=== PATIENT | female | born 1960 | race Caucasian/White ===

== ENCOUNTER → 2016-12-18 | Outpatient (CLI) | payer BC ==
--- NOTE | 2016-12-18 11:33 | REPMRS ---
Patient History The patient states she had a clinical breast exam in November 2016. Family history of breast cancer in mother at age 60. Digital Mammo Screening Bilat: December 18, 2016 - Exam #: [id number] Bilateral CC and MLO view(s) were taken. Technologist: Shelley Gomes, Technologist Prior study comparison: November 18, 2015, bilateral digital mammo screening bilat performed at [facility], [place]. November 16, 2014, bilateral digital mammo screening bilat performed at [facility], [place]. FINDINGS: There are scattered fibroglandular densities. There has been no change in the appearance of the mammogram from the prior studies. There is a mild amount of residual fibroglandular tissue which is fairly symmetric. There is no interval development of dominant mass, architectural distortion, or clustered microcalcification suggestive of malignancy. ASSESSMENT: BI-RADS/ACR category 1 mammogram. Negative. Recommendation Routine screening mammogram in 1 year (for women over age 40). This mammogram was interpreted with the aid of an FDA-approved computer-aided dectection system. Electronically Signed By: Arvind Bell MD 12/18/16 [id number]
== END ==
LOC: M RAD 10:20
PROVIDERS: ATTEND Family Medicine
DX: Z12.31 Encounter for screening mammogram for malignant neoplasm of breast (principal); Z80.3 Family history of malignant neoplasm of breast

== ENCOUNTER 2018-10-14 07:58 | Outpatient (RCR) | payer BC ==
[~2018-10-14 07:58] MED LIST: CITRTAB13 PO; FERR324T12 PO; LOSA50TA5 PO; MULTCAP PO; VITA500C24 PO; VITA500T3 PO
[2018-10-14] MEDS ORDERED: ANAS1TAB2 PO (14:23)
== END 2018-11-03 ==
LOC: M PT 07:58
PROVIDERS: ATTEND Registered Nurse
DX: Z90.13 Acquired absence of bilateral breasts and nipples (principal); C50.119 Malignant neoplasm of central portion of unspecified female breast

== ENCOUNTER → 2018-10-20 | Outpatient (CLI) | payer BC ==
[~2018-10-20] MED LIST changes: +ANAS1TAB2 PO
--- NOTE | 2018-10-24 10:15 | DEXA ---
AP SPINE L1 - L4 1.156 -0.3 0.8 LT FEMUR TOTAL 1.028 0.2 1.1 LT NECK 0.979 -0.4 0.8 RT FEMUR TOTAL 1.010 0.0 0.9 RT NECK 1.024 -0.1 1.1 TOTAL BODY TOTAL OTHER COMMENTS: Normal bone densitometry of the spine and hips. FOLLOW-UP: Recommendation for the next bone density exam: 5 years. DARYL
== END ==
LOC: M WHC 11:12
PROVIDERS: ATTEND Internal Medicine Hematology & Oncology
DX: Z79.811 Long term (current) use of aromatase inhibitors (principal); D05.12 Intraductal carcinoma in situ of left breast; Z13.820 Encounter for screening for osteoporosis; Z80.3 Family history of malignant neoplasm of breast; Z90.13 Acquired absence of bilateral breasts and nipples; Z98.84 Bariatric surgery status

== ENCOUNTER → 2018-10-21 | Outpatient (REF) | payer BC | LOC: M LAB REF 19:18 | PROVIDERS: ATTEND Physician Assistant Medical | DX: J02.9 Acute pharyngitis, unspecified (principal) ==

== ENCOUNTER → 2018-11-03 | Outpatient (CLI) | payer BC ==
--- NOTE | 2018-11-07 11:06 | RADONC ---
RADIATION ONCOLOGY CONSULTATION NOTE DATE OF CONSULTATION: 11/03/2018 CHART NUMBER: [id number]. DIAGNOSIS: Left breast cancer. STAGE: IA, [id number], grade 1, ER positive, DE positive, HER2 negative. ECOG PERFORMANCE STATUS: Zero. CONSULTATION NOTE: Ms. Arriaza is a delightful 58-year-old white female with the diagnosis of what appears to be a stage IA, [id number], well-differentiated infiltrating ductal carcinoma of the left breast which is ER positive, DE positive, and HER2 negative, who is presenting to wa status post bilateral mastectomies for discussion of postoperative radiation therapy to her left chest wall for a positive margin. HISTORY OF PRESENT ILLNESS: The patient was in the usual state of health until 2016 when she began having some left nipple discharge. A biopsy was done and showed a papilloma. She has since been followed with MRIs, and apparently one done on 07/21/2018 showed some linear enhancement in the medial left breast. 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 The patient had a strong family history of breast cancer and requested a right simple prophylactic mastectomy, as well as a left mastectomy. On 09/27/2018, the patient underwent the above procedures, as well as sentinel lymph node biopsy on the left, as well as the right. The prophylactic right breast biopsy revealed atypical ductal hyperplasia, as well as lobular carcinoma in situ. Three lymph nodes were sampled and were negative for malignancy. The left mastectomy revealed a well-differentiated invasive ductal carcinoma measuring 3 mm and associated with ductal carcinoma in situ in the previous biopsy site. Two additional foci of microinvasive carcinoma were seen. The ductal carcinoma in situ was low to intermediate nuclear grade measuring 2.2 cm. No lymph vascular invasion was seen. One axillary lymph node was sampled and was negative for malignancy. Six further lymph nodes were then sampled, and all were negative for malignancy. Of note, the superficial margin of resection was focally positive for ductal carcinoma in situ. The tumor was well-differentiated. All other margins of resection were negative. The tumor was estrogen receptor positive, progesterone receptor positive, and HER2 negative. The patient is now presenting to [place] to discuss possible chest wall radiation in light of her positive margin. Expanders have been placed for reconstructive surgery to be done in the future. PAST MEDICAL HISTORY: The patient's past medical history is positive for hypertension. She had appendicitis in 1977. The patient has had C-sections in 1980 and 1981. She had a hysterectomy in 2004. She had gastric bypass surgery in May of 2013. She had right shoulder tendinitis in 2016. ALLERGIES: The patient is allergic to PENICILLIN, CHLORHEXIDINE, SURGICAL TAPE. SOCIAL HISTORY: The patient does not smoke cigarettes nor abuse alcohol. FAMILY HISTORY: The patient's family history is positive for a mother with breast cancer and a grandmother with stomach cancer. REVIEW OF SYSTEMS: The patient's review of systems is noncontributory. She denies nausea, vomiting, fevers, chills, night sweats, diplopia, headaches, anxiety or depression, anorexia, weight loss, visual disturbances, chest pain, urinary or bowel difficulties, bone pain, or neurological problems. PHYSICAL EXAMINATION: The patient is a well-developed, well-nourished female in no acute distress. HEENT examination is normocephalic, atraumatic. Extraocular movements are intact. There is no palpable cervical, supraclavicular, infraclavicular, axillary, or inguinal lymphadenopathy present. Lungs are clear to auscultation and percussion. Heart has a regular rate and rhythm. Abdomen is benign with no hepatosplenomegaly, masses, or tenderness. Skeletal examination reveals no tenderness to pressure or percussion of the bony skeleton. Extremities reveal no clubbing, cyanosis, or edema. Neurologic examination is grossly intact, as is the remainder of the physical examination. Chest wall examination reveals bilateral expanders in place. The patient's skin is free of nodularity, ulceration, or evidence of recurrent disease. ASSESSMENT: I had a very lengthy discussion with this patient. Normally for her early stage disease, I would not recommend radiation. Unfortunately, there is a small area of a positive margin present. I cannot identify specifically where that spot is, especially after the reconstructive expanders; and therefore, I could not recommend re-excision. Overall, the patient is 58 years old and, therefore, quite young and somewhat nervous to have that positive margin remain. She wishes to be as aggressive as possible. In light of the positive margin and her young age, I do believe she is a candidate for chest wall radiation. I have discussed with the patient in detail the potential benefits, as well as possible acute and chronic sequelae of external beam radiation therapy. We discussed logistics of treatment planning, simulation, and subsequent fractionated daily radiation treatments. The patient is aware that once we deliver radiation, reconstruction is usually withheld for approximately 6 months or so. She is still willing to undergo radiation in attempt to increase the likelihood of achieving a higher chance of local regional control. Thank you for allowing us to participate in the care of this very pleasant woman. If I could be of any further assistance or provide you any information, please feel free to contact me any time. As always, warm regards. Brad Guillaume cc: MD Saqib Covarrubias MD Karen Williams, MD
== END ==
LOC: M ONCR 08:51
PROVIDERS: ATTEND Radiology Radiation Oncology
DX: C50.911 Malignant neoplasm of unspecified site of right female breast (principal)

== ENCOUNTER → 2018-11-21 | Outpatient (CLI) | payer BC ==
--- NOTE | 2018-11-22 03:39 | REP ---
Clinical: Right foot pain with history of breast cancer. Technique: AP, lateral, bilateral oblique views right foot . Findings: Mild osteopenia and age-related changes are appreciated. No acute fracture or dislocation identified. No obvious aggressive osseous lesions appreciated. Small calcaneal heal spur noted. Surrounding soft tissues are unremarkable. Impression: Mild osteopenia and small calcaneal heal spur. Electronically Signed by Bernardino Briceño MD 11/22/2018 03:31 A
--- NOTE | 2018-11-22 03:48 | REP ---
Clinical: Nontraumatic hip pain. History of breast cancer. Technique: Neutral and frog lateral views of the right and left hip. Findings: Osseous structures and joint spaces are intact and age-appropriate. Mild joint space narrowing suggested bilaterally. No acute fracture dislocation. No aggressive osseous lesions are identified. Impression: Relatively symmetric age-appropriate examination. Mild joint space narrowing. No aggressive osseous lesions. Electronically Signed by Bernardino Briceño MD 11/22/2018 03:39 A
--- NOTE | 2018-11-22 04:50 | REP ---
Clinical: Heel pain. Technique: Axial and lateral views of the calcaneus. Findings: Lateral view demonstrates a moderate calcaneal heal spur. There is no evidence for acute fracture. Joint spaces are intact and normal. Surrounding soft tissues are unremarkable and without calcifications. Impression: Moderate heal spur. Electronically Signed by Bernardino Briceño MD 11/22/2018 04:43 A
== END ==
LOC: M RAD 13:38
PROVIDERS: ATTEND Internal Medicine Hematology & Oncology
DX: M25.551 Pain in right hip (principal)

== ENCOUNTER → 2019-05-30 | Outpatient (REF) | payer BC ==
[~2019-05-30] MED LIST changes: +CYAN500T8 PO; +FERR325T3 PO; +HYDR25TAB PO; +LOSA50TA88 PO; +ULTR5TAB PO; -VITA500T3 PO
== END ==
LOC: M LAB REF 13:04
PROVIDERS: ATTEND Family Medicine
DX: N76.6 Ulceration of vulva (principal)

== ENCOUNTER → 2019-09-26 | Outpatient (REF) | payer BC ==
[2019-09-26 16:24] LABS: BLOOD UREA NITROGEN 19 MG/DL (7-18); CREATININE FOR GFR 0.71 MG/DL (0.55-1.30); GLOMERULAR FILTRATION RATE > 60.0 (>45)
== END ==
LOC: M LABDRAW1 15:36
PROVIDERS: ATTEND Physician Assistant Medical
DX: Z01.812 Encounter for preprocedural laboratory examination (principal)

== ENCOUNTER → 2020-10-28 | Outpatient (CLI) | payer BC ==
[~2020-10-28] MED LIST changes: +AMIT25TA17 PO; -CITRTAB13 PO; +CITRTAB16 PO; +CYAN500T14 PO; -CYAN500T8 PO; +HYDR-3490 PO; -HYDR25TAB PO; +MULT-90 PO
--- NOTE | 2020-10-28 16:29 | DEXAMM ---
INDICATION: AROMATASE INHIBITORS, HX OF BREAST CA. COMPARISON: Comparison study October 20, 2018.. TECHNIQUE: Bone density was measured using dual-energy x-ray absorptionmetry (DEXA). FINDINGS: AP SPINE L1-L4 BMD 1.092 g/cm2 Young Adult T-Score -0.8 Age Matched Z-Score 0.5. LT FEMUR, TOTAL BMD 1.010 g/cm2 Young Adult T-Score 0.0 Age Matched Z-Score 1.0. LT NECK BMD 0.937 g/cm2 Young Adult T-Score -0.7 Age Matched Z-Score 0.6. RT FEMUR, TOTAL BMD 0.982 g/cm2 Young Adult T-Score -0.2 Age Matched Z-Score 20.8. RT NECK BMD 0.971 g/cm2 Young Adult T-Score -0.5 Age Matched Z-Score 0.8. IMPRESSION: There is normal bone density of the spine. There is normal bone density of the left hip. There is normal bone density of the right hip. The density of the spine has decreased 5.5% since the initial exam on October 20, 2018. The density of the left hip has decreased 1.8% since initial exam on October 20, 2018. The density of the right hip has decreased 2.8% since the initial exam on October 20, 2018. FOLLOW-UP: Recommendation for the next bone density exam: 5 years. <Electronically signed by Eladio Flynn > 10/28/20 [id number]
== END ==
LOC: M WHC 10:33
PROVIDERS: ATTEND Specialist
DX: C50.912 Malignant neoplasm of unspecified site of left female breast (principal); Z79.811 Long term (current) use of aromatase inhibitors

== ENCOUNTER → 2021-04-08 | Outpatient (CLI) | payer BC ==
[~2021-04-08] MED LIST changes: +LOSA50TA28 PO; -LOSA50TA88 PO
== END ==
LOC: M RAD 10:25
PROVIDERS: ATTEND Specialist
DX: C50.919 Malignant neoplasm of unspecified site of unspecified female breast (principal)
CPT/HCPCS: 78306; A9503

== ENCOUNTER → 2022-08-11 | Outpatient (CLI) | payer BC ==
[~2022-08-11] MED LIST changes: +CITRACAL MAXIMU1 TAB PO; -CITRTAB16 PO
== END ==
LOC: M LABSMTC 09:09
PROVIDERS: ATTEND Nurse Practitioner Family
DX: Z01.812 Encounter for preprocedural laboratory examination (principal); Z11.52 Encounter for screening for COVID-19

== ENCOUNTER → 2023-03-15 | Outpatient (CLI) | payer BC, OTHER ==
[~2023-03-15] MED LIST changes: +POTA8CAP10 PO; +VALS1TAB67
== END ==
LOC: M WHC 13:17
PROVIDERS: ATTEND Nurse Practitioner
DX: C50.911 Malignant neoplasm of unspecified site of right female breast (principal)

== ENCOUNTER → 2023-10-14 | Outpatient (CLI) | payer OTHER ==
[~2023-10-14] MED LIST changes: -AMIT25TA17 PO; +AMIT25TA19 PO; +LOSA100T8; +POTA-136; +PROP20TA72
[2023-10-14 12:30] LABS: BASO % 0.7 % (0.0-1.0); HEMATOCRIT 39.1 % (36.0-47.0); HEMOGLOBIN 13.3 g/dl (12.0-15.5); LYMPH % 30.1 % (24.0-44.0); MEAN CORPUSCULAR HEMOGLOBIN 30.6 pg (27.0-33.0); MEAN CORPUSCULAR VOLUME 89.9 fl (80.0-96.0); MONO % 9.3 % (2.0-8.0); NEUTROPHILS % 56.8 % (36.0-66.0); PLATELET COUNT, AUTOMATED 243 10^3/uL (150-450); RED BLOOD COUNT 4.35 10^6/uL (4.00-5.40); WHITE BLOOD COUNT 6.8 10^3/uL (4.0-10.0)
[2023-10-14 12:31] LABS: BASO # 0.1 10^3/uL (0.0-0.2); EOS # 0.2 10^3/uL (0.0-0.5); MONO # 0.6 10^3/uL (0.0-0.8); NEUTROPHILS # 3.8 10^3/uL (1.5-8.5)
[2023-10-14 12:39] LABS: ERYTHROCYTE SEDIMENTATION RATE 18 mm/hr (0-30)
== END ==
LOC: M LAB 11:25
PROVIDERS: ATTEND Optometrist
DX: R51.9 Headache, unspecified (principal)

== ENCOUNTER → 2024-05-19 | Outpatient (REF) | payer MEDICARE ==
[2024-05-22 15:13] LABS: IRON (FE) 72 UG/DL (50-170); PERCENT SATURATION 23.8 % (13.2-45.0); TOTAL IRON BINDING CAPACITY 303 UG/DL (250-425)
[2024-05-22 15:17] LABS: VITAMIN B12 LEVEL > 2000 PG/ML (211-911)
== END ==
LOC: M LAB REF 11:31
PROVIDERS: ATTEND Internal Medicine
DX: D64.9 Anemia, unspecified (principal)

== ENCOUNTER → 2024-06-29 | Outpatient (CLI) | payer MEDICARE ==
[~2024-06-29] MED LIST changes: +PROHANCE 279.3MG/ML 15ML VIAL ONE
== END ==
LOC: M PLAIMG 10:27
PROVIDERS: ATTEND Physician Assistant Surgical
DX: C50.912 Malignant neoplasm of unspecified site of left female breast (principal); Z98.82 Breast implant status; Z90.13 Acquired absence of bilateral breasts and nipples
CPT/HCPCS: A9576; C8908

== ENCOUNTER → 2025-05-29 | Outpatient (CLI) | payer MEDICARE ==
[~2025-05-29] MED LIST changes: +B-122500 PO; -PROHANCE 279.3MG/ML 15ML VIAL ONE
== END ==
LOC: M WHC 11:19
PROVIDERS: ATTEND Internal Medicine
DX: M81.0 Age-related osteoporosis without current pathological fracture (principal)